=== PATIENT | male | born 1975 | race Caucasian/White ===

== ENCOUNTER 2021-04-15 03:43 | Emergency (ER) | payer MEDICAID, OTHER ==
[~2021-04-15] VITALS: Ht 177.8 cm; Wt 64.0 kg
[~2021-04-15 03:43] MED LIST: CLIN-97 PO; CLIN150C8 PO
[2021-04-15 03:57] VITALS: BP 140/90
== END 2021-04-15 16:38 | disposition left against medical advice (07) ==
LOC: ER 03:44
DX: L08.9 Local infection of the skin and subcutaneous tissue, unspecified (principal); Z53.21 Procedure and treatment not carried out due to patient leaving prior to being seen by health care provider